=== PATIENT | male | born 1980 | race Caucasian/White ===

== ENCOUNTER 2016-05-13 08:42 | Emergency (ER) | payer MEDICARE, OTHER ==
[2016-05-13] MEDS ORDERED: CIPROFLOXACIN 250 MG TABLET PO STA (09:14)
[2016-05-13] MEDS ORDERED: ACETAMINOPHEN 325 MG TABLET PO STA (09:14)
[2016-05-13] MEDS ORDERED: IBUPROFEN 800 MG TABLET PO STA (09:14)
[2016-05-13] MEDS ORDERED: CIPROFLOXACIN 250 MG TABLET PO ONE (09:39)
[2016-05-13] MEDS ORDERED: IBUPROFEN 800 MG TABLET PO ONE (09:40)
[2016-05-13] MEDS ORDERED: ACETAMINOPHEN 325 MG TABLET PO ONE (09:40)
== END 2016-05-13 10:59 | disposition home or self-care (01) ==
DX: N45.1 Epididymitis (principal); N50.812 Left testicular pain; Z79.82 Long term (current) use of aspirin
CPT/HCPCS: 81003; 99283; A9270

== ENCOUNTER 2016-05-21 08:58 | Emergency (ER) | payer MEDICARE, OTHER ==
[2016-05-21] MEDS ORDERED: LIDOCAINE PATCH 5% TOP STA (09:14)
[2016-05-21] MEDS ORDERED: LIDOCAINE PATCH 5% TOP ONE (09:21)
== END 2016-05-21 10:50 | disposition home or self-care (01) ==
DX: S43.401A Unspecified sprain of right shoulder joint, initial encounter (principal); S20.311A Abrasion of right front wall of thorax, initial encounter; V23.4XXA Motorcycle driver injured in collision with car, pick-up truck or van in traffic accident, initial encounter; Y92.481 Parking lot as the place of occurrence of the external cause; Z79.82 Long term (current) use of aspirin
CPT/HCPCS: 73000; 73030; 99283; A9270